=== PATIENT | female | born 2000 | race Caucasian/White ===

== ENCOUNTER → 2022-04-11 | Outpatient (CLI) | payer OTHER | LOC: M WHC 12:59 | PROVIDERS: ATTEND Obstetrics & Gynecology | DX: Z34.02 Encounter for supervision of normal first pregnancy, second trimester (principal); Z3A.23 23 weeks gestation of pregnancy ==

== ENCOUNTER 2022-04-26 18:01 | Emergency (ER) | payer OTHER ==
[~2022-04-26] VITALS: Ht 172.7 cm; Wt 82.5 kg
[2022-04-26 18:02] VITALS: BP 124/59
[2022-04-26] MEDS ORDERED: PRENTAB53 PO (18:08)
== END 2022-04-26 18:50 | disposition home or self-care (01) ==
LOC: M ED 18:01
DX: O9A.213 Injury, poisoning and certain other consequences of external causes complicating pregnancy, third trimester (principal); S80.911A Unspecified superficial injury of right knee, initial encounter; S80.912A Unspecified superficial injury of left knee, initial encounter; W01.0XXA Fall on same level from slipping, tripping and stumbling without subsequent striking against object, initial encounter

== ENCOUNTER 2022-04-28 22:53 | Outpatient (CLI) | payer OTHER ==
[~2022-04-28] VITALS: Ht 172.7 cm; Wt 78.2 kg
[~2022-04-28 22:53] MED LIST: PRENTAB53 PO
[2022-04-28 23:00] VITALS: BP 111/56
[2022-04-28] MEDS ORDERED: HOME MED LIST COMPLETE! XX SCH (23:30)
== END 2022-04-28 23:27 | disposition home or self-care (01) ==
LOC: M LDO 22:53
PROVIDERS: ATTEND Obstetrics & Gynecology
DX: O36.8129 Decreased fetal movements, second trimester, other fetus (principal); O26.892 Other specified pregnancy related conditions, second trimester; N89.8 Other specified noninflammatory disorders of vagina; Z3A.25 25 weeks gestation of pregnancy
CPT/HCPCS: 59025; G0463

== ENCOUNTER → 2022-05-17 | Outpatient (CLI) | payer OTHER | LOC: M WHC 09:57 | PROVIDERS: ATTEND Obstetrics & Gynecology | DX: O26.892 Other specified pregnancy related conditions, second trimester (principal) ==

== ENCOUNTER → 2022-05-30 | Outpatient (CLI) | payer OTHER ==
[2022-05-30 15:39] LABS: HEMATOCRIT 33.2 % (36.0-47.0); HEMOGLOBIN 11.1 g/dl (12.0-15.5); MEAN CORPUSCULAR HEMOGLOBIN 31.4 pg (27.0-33.0); MEAN CORPUSCULAR HGB CONC 33.4 g/dl (32.0-36.5); MEAN CORPUSCULAR VOLUME 94.1 fl (80.0-96.0); PLATELET COUNT, AUTOMATED 238 10^3/uL (150-450); RED BLOOD COUNT 3.53 10^6/uL (4.00-5.40); WHITE BLOOD COUNT 10.7 10^3/uL (4.0-10.0)
== END ==
LOC: M PLALAB 13:01
PROVIDERS: ATTEND Obstetrics & Gynecology
DX: O26.892 Other specified pregnancy related conditions, second trimester (principal)

== ENCOUNTER → 2022-07-10 | Outpatient (REF) | payer OTHER | LOC: M SFHCWAGY 13:00 | PROVIDERS: ATTEND Specialist | DX: Z34.03 Encounter for supervision of normal first pregnancy, third trimester (principal) ==

== ENCOUNTER 2022-07-14 09:30 | Outpatient (CLI) | payer OTHER ==
[~2022-07-14] VITALS: Ht 172.7 cm; Wt 86.4 kg
[2022-07-14 09:45] VITALS: BP 129/58
[2022-07-14] MEDS ORDERED: REGL5TAB2 PO (09:51)
[2022-07-14] MEDS ORDERED: HOME MED LIST COMPLETE! XX SCH (09:55)
[2022-07-14] MEDS ORDERED: ACETAMINOPHEN 500 MG TAB PO ONE (10:10)
[2022-07-14 11:23] VITALS: BP 108/49
[2022-07-14] MEDS ORDERED: OSEL75CA PO (11:43)
== END 2022-07-14 11:57 | disposition home or self-care (01) ==
LOC: M LDO 09:30
PROVIDERS: ATTEND Obstetrics & Gynecology
DX: O26.893 Other specified pregnancy related conditions, third trimester (principal); B37.9 Candidiasis, unspecified; O99.513 Diseases of the respiratory system complicating pregnancy, third trimester; J09.X9 Influenza due to identified novel influenza A virus with other manifestations; Z3A.36 36 weeks gestation of pregnancy
CPT/HCPCS: 59025; 87486; 87581; 87633; 87798; G0463

== ENCOUNTER → 2022-07-18 | Outpatient (CLI) | payer OTHER ==
[~2022-07-18] MED LIST changes: +OSEL75CA PO; +REGL5TAB2 PO
== END ==
LOC: M WHC 11:52
PROVIDERS: ATTEND Specialist
DX: Z34.03 Encounter for supervision of normal first pregnancy, third trimester (principal)

== ENCOUNTER 2022-07-29 16:27 | Outpatient (CLI) | payer OTHER ==
[~2022-07-29] VITALS: Ht 172.7 cm; Wt 86.1 kg
[2022-07-29 16:43] VITALS: BP 129/74
[2022-07-29] MEDS ORDERED: HOME MED LIST COMPLETE! XX SCH (16:50)
== END 2022-07-29 17:16 | disposition home or self-care (01) ==
LOC: M LDO 16:27
PROVIDERS: ATTEND Obstetrics & Gynecology
DX: O26.893 Other specified pregnancy related conditions, third trimester (principal); N89.8 Other specified noninflammatory disorders of vagina; Z3A.38 38 weeks gestation of pregnancy
CPT/HCPCS: 59025; 76815; G0463

== ENCOUNTER 2022-08-13 11:14 | Outpatient (CLI) | payer OTHER ==
[~2022-08-13] VITALS: Ht 172.7 cm; Wt 86.7 kg
[2022-08-13 11:31] VITALS: BP 126/72
[2022-08-13] MEDS ORDERED: PEPC40TA12 PO (11:35)
[2022-08-13] MEDS ORDERED: HOME MED LIST COMPLETE! XX SCH (11:35)
[2022-08-14] MEDS ORDERED: TUMS750C5 PO (18:48)
[2022-08-14] MEDS ORDERED: REGL5TAB2 PO (18:49)
== END 2022-08-13 13:08 | disposition home or self-care (01) ==
LOC: M LDO 11:14
PROVIDERS: ATTEND Specialist
DX: O36.8130 Decreased fetal movements, third trimester, not applicable or unspecified (principal); Z3A.41 41 weeks gestation of pregnancy
CPT/HCPCS: 59025; G0463

== ENCOUNTER 2022-08-14 18:20 | Inpatient (IN) | payer OTHER ==
[~2022-08-14] VITALS: Ht 172.7 cm; Wt 88.5 kg
[~2022-08-14 18:20] MED LIST changes: +PEPC40TA12 PO
[2022-08-14] MEDS ORDERED: TUMS750C5 PO (18:48)
[2022-08-14] MEDS ORDERED: REGL5TAB2 PO (18:49)
[2022-08-14] MEDS ORDERED: HOME MED LIST COMPLETE! XX SCH (18:50)
[2022-08-14 18:51] VITALS: BP 139/78
[2022-08-14] MEDS ORDERED: LACTATED RINGER'S 1000 ML IV STA (19:14)
[2022-08-14] MEDS ORDERED: TRANEXAMIC ACID INJection 1,000 MG in NS 100 ML IV PRN (19:15)
[2022-08-14] MEDS ORDERED: METHYLERGONOVINE MALEATE 0.2 MG/ML VIAL (J2210) IM PRN (19:15)
[2022-08-14] MEDS ORDERED: OXYTOCIN DRIP 30 UNITS in IV 1 EA IV PRN (19:15)
[2022-08-14] MEDS ORDERED: OXYTOCIN INJ 10UNITS/ML 1ML VIAL IM PRN (19:15)
[2022-08-14] MEDS ORDERED: CARBOPROST TROMETHAMINE 250 MCG/ML AMP IM PRN (19:15)
[2022-08-14] MEDS ORDERED: LIDOCAINE 1% MDV 20ML VIAL INFIL PRN (19:15)
[2022-08-14 19:25] VITALS: BP 136/80
[2022-08-14 19:39] LABS: HEMATOCRIT 30.9 % (36.0-47.0); HEMOGLOBIN 10.5 g/dl (12.0-15.5); MEAN CORPUSCULAR HEMOGLOBIN 30.3 pg (27.0-33.0); PLATELET COUNT, AUTOMATED 212 10^3/uL (150-450); RED BLOOD COUNT 3.47 10^6/uL (4.00-5.40); WHITE BLOOD COUNT 10.4 10^3/uL (4.0-10.0)
[2022-08-14] MEDS ORDERED: miSOPROStol 50MCG 1/2 TABLET PO SCH (19:40)
[2022-08-14 20:00] VITALS: BP 141/75
[2022-08-14 21:00] VITALS: BP 141/79
[2022-08-14 21:58] VITALS: BP 120/57
[2022-08-14 23:21] VITALS: BP 128/60
[2022-08-15] VITALS (33 sets, daily range): BP systolic 95–142; BP diastolic 50–82
[2022-08-15] MEDS ORDERED: LR 1,000 ML IV SCH (00:05)
[2022-08-15] MEDS ORDERED: OXYTOCIN DRIP 30 UNITS in IV 1 EA IV SCH (00:05)
[2022-08-15] MEDS ORDERED: FENTANYL/ROPIVACAINE/NACL BAG 100 ML EPIDURAL SCH (01:30)
[2022-08-15] MEDS ORDERED: ePHEDrine SULFATE 25 MG/5 ML(5MG/ML) SYRINGE IVP PRN (01:30)
[2022-08-15] MEDS ORDERED: LR 500 ML IV PRN (01:30)
[2022-08-15] MEDS ORDERED: ONDANSETRON 4MG 2ML VIAL IV PRN (01:30)
[2022-08-15] MEDS ORDERED: diphenhydrAMINE 50MG/ML VIAL IV PRN (01:30)
[2022-08-15] MEDS ORDERED: EPIDURAL/PCA KEYS XX PRN (01:30)
[2022-08-15] MEDS ORDERED: NALOXONE INJ 0.4MG/1ML VIAL IV PRN (01:30)
[2022-08-15] MEDS ORDERED: DOCUSATE SODIUM 100MG CAPSULE PO PRN (06:30)
[2022-08-15] MEDS ORDERED: ANUSOL HC CREAM 30GM TOP PRN (06:30)
[2022-08-15] MEDS ORDERED: ACETAMINOPHEN TAB 650MG DOSE (2X325MG) PO PRN (06:30)
[2022-08-15] MEDS ORDERED: DIBUCAINE 1% OINTMENT 30GM TOP PRN (06:30)
[2022-08-15] MEDS ORDERED: ACETAMINOPHEN 500 MG TAB PO PRN (06:30)
[2022-08-15] MEDS ORDERED: IBUPROFEN 600MG TAB PO PRN (06:30)
[2022-08-15] MEDS ORDERED: RHOGAM 300 MCG (1500 IU) INJ (J2790) IM SCH (06:30)
[2022-08-15] MEDS ORDERED: MOM 30ML SUSPENSION UDC PO PRN (06:30)
[2022-08-15] MEDS ORDERED: METHYLERGONOVINE MALEATE 0.2 MG TAB PO PRN (06:30)
[2022-08-15] MEDS: PRENATAL VITAMINS CHEWABLE TABLET PO SCH (08:31)
[2022-08-15] MEDS: IBUPROFEN 800 MG TAB PO PRN (17:19)
[2022-08-16] MEDS: IBUPROFEN 800 MG TAB PO PRN ×3 (01:48→19:44)
[2022-08-16 06:12] VITALS: BP 116/71
[2022-08-16] MEDS: PRENATAL VITAMINS CHEWABLE TABLET PO SCH (08:51)
[2022-08-16 18:00] VITALS: BP 105/50
[2022-08-17] MEDS: IBUPROFEN 800 MG TAB PO PRN (05:27)
[2022-08-17 06:00] VITALS: BP 114/62
[2022-08-17] MEDS ORDERED: MEASLES,MUMPS,RUBELLA VACCINE INJ (MMR-II) (90707) SC.IMMUN ONE (09:00)
[2022-08-17] MEDS: PRENATAL VITAMINS CHEWABLE TABLET PO SCH (09:22)
== END 2022-08-17 14:04 | disposition home or self-care (01) | DRG 806 ==
LOC: M LDI 18:20 → M OBS 08-15 09:00
PROVIDERS: ADMIT Advanced Practice Midwife; ATTEND Advanced Practice Midwife
PROC: 3E0P7GC Introduction of Other Therapeutic Substance into Female Reproductive, Via Natural or Artificial Opening (ICD-10-PCS; 2022-08-14)
PROC: 10E0XZZ Delivery of Products of Conception, External Approach (ICD-10-PCS; principal; 2022-08-15)
PROC: 0HQ9XZZ Repair Perineum Skin, External Approach (ICD-10-PCS; 2022-08-15)
DX: O48.0 Post-term pregnancy (principal); Z37.0 Single live birth; O71.7 Obstetric hematoma of pelvis; Z3A.41 41 weeks gestation of pregnancy; O70.0 First degree perineal laceration during delivery

== ENCOUNTER → 2023-01-02 | Outpatient (REF) | payer OTHER ==
[~2023-01-02] MED LIST changes: +TUMS750C5 PO
[2023-01-02 19:19] LABS: GC DNA AMPLIFICATION NEGATIVE (NEGATIVE)
== END ==
LOC: M LAB REF 17:13
PROVIDERS: ATTEND Registered Nurse
DX: Z11.3 Encounter for screening for infections with a predominantly sexual mode of transmission (principal)